=== PATIENT | male | born 1970 | race Caucasian/White ===

== ENCOUNTER → 2018-10-26 | Outpatient (CLI) | payer OTHER ==
[~2018-10-26] MED LIST: CYCL10TA2 PO; METH-37 PO
--- NOTE | 2018-10-26 23:15 | PAIN ---
DATE OF SERVICE: 10/26/2018 INITIAL CONSULTATION FOR PAIN CLINIC CHIEF COMPLAINT: Low back and left lower extremity pain. HISTORY OF PRESENT ILLNESS: This is a 48-year-old male who presents with history of pain in the low back and left lower extremity for about 1 year. The patient reports he did this while he was working out. 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 The patient reports it is more in the lateral anterior thigh, posterior thigh and lateral anterior medial leg on the left side only. No radiation on the right leg. The patient reports he has had some chiropractic treatment as well as doing some physical therapy and does exercises on his own constantly and did help with his chiropractic treatment, but only temporarily. The patient has tried Flexeril as well as methocarbamol. Flexeril does help mildly, but causes some sedation, but does decrease the pain mildly. The methocarbamol was not helpful. The patient reports it awakens him from sleep at night at least twice a night. It does not affect his bowel or bladder control, but does affect his ability to walk with the left leg fatiguing much more easily than the right, but without any loss of function. The patient reports the pain is constant, sharp, stabbing, throbbing, shooting, radiating to the left leg, has described as aching in the back as well. The patient had MRI scan of the lumbar spine, which shows multilevel degenerative disease most pronounced at L4-L5 with a mild disk degeneration and diffuse disk bulge, mild central canal stenosis, no lateral recess stenosis, mild bilateral neural foraminal stenosis. L5-S1 shows mild degeneration, moderate right and mild left facet arthropathy with a mild diffuse disk bulge, but no stenoses as well on that level. The patient rates his disability rate from 0-10, 10 being the worst, is a 6 with family and home responsibilities, 5 with social activity, occupation and sexual behavior, 10 with recreational activities, 2 with self-care and 0 with life support activities. PAST MEDICAL HISTORY: Significant for hearing loss, wears glasses, history of arthritis. PAST SURGICAL HISTORY: Includes right ankle surgery in 2016 and hernia repair in 1995. CURRENT MEDICATIONS: Include cyclobenzaprine and methocarbamol. ALLERGIES: THE PATIENT IS ALLERGIC TO IV CONTRAST DYE. No other medical allergies. FAMILY HISTORY: Significant for no major medical problems or conditions he is aware of. SOCIAL HISTORY: The patient drinks about 2 drinks twice a week, does not use any illegal, illicit or recreational drugs, does not smoke. He is , lives with his spouse and lives locally in [place], [place]. 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 REVIEW OF SYSTEMS: The patient's review of systems is positive for those items mentioned in history of present illness. All systems reviewed and otherwise negative. It is complete, full and well documented on the patient's chart. PHYSICAL EXAMINATION: VITAL SIGNS: The patient's blood pressure is 171/76, pulse 85, respirations 18, temperature is 97.6 degrees Fahrenheit. Height is 5 feet 10 inches, weight is 224 pounds. GENERAL: The patient is awake, alert, oriented, appropriate, very pleasant demeanor. HEENT: Head shows normocephalic, atraumatic. Extraocular movements are intact and symmetrical. Oral cavity: Mucous membranes moist and pink. Dentition is intact. NECK: Shows anterior throat supple without palpable lymphadenopathy noted. Swallow reflex symmetrical. CHEST: Shows normal with inspection. Breath sounds clear to auscultation bilaterally. HEART: Shows S1, S2 clear. No murmurs auscultated. ABDOMEN: Soft, nontender, nondistended. No palpable organomegaly is noted. No rebound or guarding demonstrated. BACK: Shows spine grossly in the midline. Normal appearing thoracic kyphosis and lumbar lordotic curvature. Lumbar paraspinous muscle shows symmetrical on inspection, with palpation shows some moderate tenderness, but only diffusely in the inferior aspect of the lumbar paraspinous musculature and equal bilaterally. No tenderness over the spinous processes, sacrum or sacroiliac regions. The patient has good rotational motion of lumbar spine, both laterally greater than 10 degrees right and left as well as extension greater than 10 degrees, forward flexion 45 degrees without pain reported. EXTREMITIES: The patient's lower extremities show deep tendon reflexes 2+ in the patellar and tendo calcaneus tendons. Motor exam is strong with 5/5 dorsiflexion, extension, quadriceps and hamstring flexion symmetrical. Peripheral pulses are 1+ posterior tibial. No peripheral edema is noted. Straight leg raise is noted to be mildly positive on the left at approximately 45 degrees. Right side is negative. Gaenslen's and Gordon's maneuvers are negative bilaterally as well. The patient is able to stand, stand on his toes without difficulty or loss of balance, walks with a normal appearing gait for short distance in the office, not using any assistive devices to ambulate. SKIN: Shows warm and dry, good turgor. No edema. No sores, rashes or bruising. IMPRESSION: 1. This is a 48-year-old male with approximately 1 year history of pain in low back, left lower extremity in a radicular fashion. 2. MRI scan of lumbar spine as noted. 3. Arthritis. PLAN: Options were discussed with the patient including conservative medical management, physical therapy and interventional techniques. He would like to proceed with interventional techniques. We discussed a lumbar epidural steroid injection using descriptions as well as anatomical models to describe the procedure. The patient would like to proceed with this. We will wait for preauthorization with his insurance provider. Once this is obtained, we will have the patient return and plan on lumbar epidural steroid injection at that time. In the meantime, the patient will continue doing stretching and strengthening exercises cautiously with activity and we will have him return as scheduled. ROXIE CHAVEZ MD DR: SHARIFA/xavi JOB#: [id number] / [id number]
== END | disposition home or self-care (01) ==
LOC: PNCL 08:00
PROVIDERS: ATTEND Anesthesiology
DX: M54.5 Low back pain (principal); M79.605 Pain in left leg; M19.90 Unspecified osteoarthritis, unspecified site
CPT/HCPCS: G0463

== ENCOUNTER → 2018-10-29 | Outpatient (CLI) | payer OTHER ==
[~2018-10-29] MED LIST changes: +IOHEXOL 180 MG/ML 10 ML VIAL. ONE; +MELO15TA23 PO; +METH40CP PO; +MULT1TAB52 PO; +OMEG1CAP6 PO; +PRAZ2CAP PO; +methylPREDNISolone ACETATE 40 MG/ML VIAL. ONE; +methylPREDNISolone ACETATE 80 MG/ML VIAL. ONE
--- NOTE | 2018-10-29 18:56 | PAIN ---
DATE OF SERVICE: 10/29/2018 DIAGNOSIS: Lumbar radiculopathy with lumbar degenerative disk disease. HISTORY OF PRESENT ILLNESS: The patient is a 48-year-old male who returns followup status post initial evaluation and preauthorization for lumbar epidural steroid injection. The patient has obtained this and would like to proceed today. The patient reports still some significant pain in the low back, left lower extremity as it was previously, posterior gluteus, posterior lateral thigh, lateral anterior thigh, anterior medial thigh, medial lower leg and posterior calf; described as 9 on a scale of 10 at its worst, 8 on average, 4 at its least and is 4 today. The patient reports it is aching, sharp, dull, shooting, stabbing, radiating, becoming more constant, worse with standing, walking, changing positions, better with sitting or lying down, but does awaken her from sleep about every 4-5 hours. The patient reports no new motor or sensory deficits, no new bowel or bladder incontinence or other complaints. PHYSICAL EXAMINATION: VITAL SIGNS: The patient's blood pressure is 141/90, pulse 90, respirations 18, temperature 98.1 degrees Fahrenheit, height is 5 feet 10 inches and weighs 225 pounds. GENERAL: The patient is awake, alert, oriented, appropriate, very pleasant demeanor. HEENT: Head is normocephalic, atraumatic. Extraocular movements are intact and symmetrical. Oral cavity: Mucous membranes moist and pink. Dentition is intact. NECK: Shows anterior throat supple without palpable lymphadenopathy noted. Swallow reflex symmetrical. CHEST: Shows normal on inspection. Breath sounds clear to auscultation bilaterally. HEART: Shows S1, S2 clear. No murmurs auscultated. ABDOMEN: Soft, nontender, nondistended. No palpable organomegaly is noted. No rebound or guarding demonstrated. BACK: Shows spine grossly in the midline. Normal-appearing thoracic kyphosis and lumbar lordotic curvature. Lumbar paraspinous muscle shows symmetrical on inspection, with palpation shows some moderate tenderness diffusely bilaterally, but only diffusely without radiation. EXTREMITIES: The patient's lower extremities show deep tendon reflexes 2+ in the patella, 1+ in the tendo calcaneus tendons are equal. Motor exam is strong 5/5 with dorsiflexion, extension, quadriceps and hamstring flexion symmetrical. Peripheral pulses are 1+ posterior tibial. No peripheral edema is noted bilaterally. Options were discussed with the patient. The patient's old chart was reviewed as was his current medication regimen updated. Current review of systems updated today as well. We will proceed with a lumbar epidural steroid injection today with fluoroscopic guidance. Risks were again discussed including, but not limited to bleeding, infection, possibility of epidural hematoma, subsequent neurological compromise, dural puncture, headaches, spinal cord and/or nerve damage, side effects of steroid medication and poor results regarding pain control. The patient understands and wished to proceed. The patient will return to clinic in approximately 2 weeks for followup. He was counseled as to return appointment, activity level and side effects to be aware of. DIAGNOSIS: Lumbar radiculopathy with lumbar degenerative disk disease. PROCEDURE: Lumbar epidural steroid injection, translaminar approach L4-L5 level using C-arm fluoroscopic guidance under sterile prep and drape using local anesthetic. MEDICATION INJECTED: A total of 120 mg Depo-Medrol plus 10 mL of preservative-free normal saline and 2 mL of Isovue for contrast. CONDITION AT DISCHARGE: Stable. The patient tolerated the procedure well, had no complications. ROXIE CHAVEZ MD DR: SHARIFA/xavi JOB#: [id number] / [id number]
== END | disposition home or self-care (01) ==
LOC: PNCL 11:30
PROVIDERS: ATTEND Anesthesiology
DX: M51.16 Intervertebral disc disorders with radiculopathy, lumbar region (principal); Z91.041 Radiographic dye allergy status
CPT/HCPCS: 62323; J1030; J1040; Q9965

== ENCOUNTER → 2018-11-11 | Outpatient (CLI) | payer OTHER ==
[~2018-11-11] MED LIST changes: -IOHEXOL 180 MG/ML 10 ML VIAL. ONE; -methylPREDNISolone ACETATE 40 MG/ML VIAL. ONE; -methylPREDNISolone ACETATE 80 MG/ML VIAL. ONE
--- NOTE | 2018-11-11 22:06 | PAIN ---
DATE OF SERVICE: 11/11/2018 PROGRESS NOTE FOR PAIN CLINIC DIAGNOSIS: Lumbar radiculopathy with lumbar degenerative disk disease. HISTORY OF PRESENT ILLNESS: The patient is a 48-year-old male who returns for followup status post lumbar epidural steroid injection x 1. The patient reports about 50% improvement in the low back and left lower extremity, increase his activity with greater ease and comfort. The patient is very pleased that he is feeling much better. The patient has been traveling with greater ease and comfort, also doing exercise with greater ease, still sleeping well at night, does not awaken her from sleep, increase his distance walking, doing work activities, household activities and traveling with greater ease and comfort. The patient reports his pain is still 8 on a scale of 10 at its worst, 6 on average, 3 at its least and is a 3 today. It is aching, sharp, dull, shooting, stabbing, sometimes constant in the low back and the left leg, mostly in the anterior thigh, lateral thigh and across the low back, mostly on the left side. The patient reports no new motor or sensory deficits and no new bowel or bladder incontinence or other complaints. PHYSICAL EXAMINATION: VITAL SIGNS: Today, the patient's blood pressure is 141/83, pulse 90 and respirations are 18. Temperature is 98.7 degrees Fahrenheit, height is 5 feet 10 inches and weigh is 225 pounds. GENERAL: The patient is awake, alert, oriented, appropriate and very pleasant demeanor. HEENT: Head shows normocephalic and atraumatic. Extraocular movements intact and symmetrical. Oral cavity: Mucous membranes moist and pink. Dentition is intact. NECK: Shows anterior throat supple without palpable lymphadenopathy noted. Swallow reflex is symmetrical. CHEST: Shows normal with inspection. Breath sounds are clear to auscultation bilaterally. HEART: Shows S1 and S2 clear. No murmurs auscultated. ABDOMEN: Soft, nontender and nondistended. No palpable organomegaly is noted. No rebound or guarding demonstrated. BACK: Shows spine grossly in the midline. Normal appearing thoracic kyphosis and lumbar lordotic curvature. Lumbar paraspinous musculature shows symmetrical on inspection and on palpation shows some moderate tenderness but only diffusely without radiation. EXTREMITIES: Lower extremities show deep tendon reflexes at 2+ in the patellar, 1+ tendo-calcaneus tendons. Motor exam is strong with 5/5 dorsiflexion, extension, quadriceps and hamstring flexion and symmetrical. Peripheral pulses are 1+ posterior tibial. No peripheral edema is noted bilaterally. Options were discussed with the patient. The patient's old chart was reviewed as well as his current medication regimen updated. Current review of systems updated today as well and we will preauthorize the patient for a second lumbar epidural steroid injection. He has done very well with the first injection, still some radicular pain in the L4-L5 distribution on the left side. The patient will continue with stretching and strengthening exercises as tolerated and will return to clinic in approximately 5 days. We will plan on second lumbar epidural steroid injection at that time. ROXIE CHAVEZ MD DR: SHARIFA/nts JOB#: [id number] / [id number]
== END | disposition home or self-care (01) ==
LOC: PNCL 10:59
PROVIDERS: ATTEND Anesthesiology
DX: M51.16 Intervertebral disc disorders with radiculopathy, lumbar region (principal); M79.605 Pain in left leg
CPT/HCPCS: G0463

== ENCOUNTER → 2018-11-16 | Outpatient (CLI) | payer OTHER ==
[~2018-11-16] MED LIST changes: +IOHEXOL 180 MG/ML 10 ML VIAL. ONE; +methylPREDNISolone ACETATE 40 MG/ML VIAL. ONE; +methylPREDNISolone ACETATE 80 MG/ML VIAL. ONE
--- NOTE | 2018-11-16 23:44 | PAIN ---
DATE OF SERVICE: 11/16/2018 PROGRESS NOTE FOR PAIN CLINIC: DIAGNOSIS: Lumbar radiculopathy with lumbar degenerative disk disease. HISTORY OF PRESENT ILLNESS: The patient is a 48-year-old male who returns for followup status post lumbar epidural injection x 1. He was waiting for preauthorization for second injection. The patient obtained that and would like to proceed today. The patient reports still pain in the low back, left lower extremity as was previously, mostly in the posterior gluteus, posterolateral thigh, lateral anterior thigh, anterior medial thigh, medial lower leg, rates it as 8 on a scale of 10 at its worst, 5 at its average and 3 at its least and is a 5 today. The patient reports it is aching, dull, sharp, shooting, stabbing, radiating, becoming more constant with time, but again currently helping from his last injection about 50% overall even after extended period of time. The patient reports it is better with sleeping. He has increased his activity very gradually with working out and exercising and doing better at night with much better sleep. The patient reports no new motor or sensory deficits, no new bowel or bladder incontinence or other complaints. PHYSICAL EXAMINATION: VITAL SIGNS: The patient's blood pressure 148/97, pulse 78, respirations 18, temperature 97.7 degrees Fahrenheit. Height is 5 feet 10 inches, weight is 225 pounds. GENERAL: The patient is awake, alert, oriented, appropriate, very pleasant demeanor. HEENT: Head is normocephalic, atraumatic. Extraocular movements are intact and symmetrical. Oral cavity: Mucous membranes moist and pink. Dentition is intact. NECK: Shows anterior throat supple without palpable lymphadenopathy noted. Swallow reflex symmetrical. CHEST: Shows normal with inspection. Breath sounds clear to auscultation bilaterally. HEART: Shows S1, S2 clear. No murmurs auscultated. ABDOMEN: Soft, nontender, nondistended. No palpable organomegaly is noted. No rebound or guarding demonstrated. BACK: Shows spine grossly in the midline. Normal appearing thoracic kyphosis and lumbar lordotic curvature. Lumbar paraspinous muscle shows symmetrical on inspection, on palpation shows a very mild tenderness only in the low lumbar distribution of paraspinous muscles bilaterally without radiation. The patient shows good range of motion both laterally as well as extension and flexion of lumbar spine with rotation without difficulty. EXTREMITIES: Lower extremities show deep tendon reflexes 2+ in the patellar, 1+ tendo-calcaneus tendons. Motor exam is strong with 5/5 dorsiflexion, extension, quadriceps and hamstring flexion symmetrical. Peripheral pulses are 1+ posterior tibial. No peripheral edema is noted. Options were discussed with the patient. The patient's old chart was reviewed as his current medication regimen updated. Current review of systems updated today as well. We will proceed with a second in the series of lumbar epidural steroid injection today with fluoroscopic guidance. Risks were again discussed including, but not limited to bleeding, infection, possibility of epidural hematoma, subsequent neurologic compromise, dural puncture, headaches, spinal cord and/or nerve damage, side effects of steroid medication and poor results regarding pain control. The patient understands and wished to proceed. The patient to return to clinic in approximately 2 weeks for followup. He was counseled on return appointment, activity level and side effects to be aware of. DIAGNOSIS: Lumbar radiculopathy with lumbar degenerative disk disease. PROCEDURE: Lumbar epidural steroid injection, translaminar approach L4-L5 level using C-arm fluoroscopic guidance under sterile prep and drape using local anesthetic. MEDICATION INJECTED: A total of 120 mg Depo-Medrol plus 10 mL of preservative-free normal saline and 2 mL of Isovue for contrast. CONDITION AT DISCHARGE: Stable. The patient tolerated procedure well, had no complications. ROXIE CHAVEZ MD DR: SHARIFA/xavi JOB#: [id number] / [id number]
== END | disposition home or self-care (01) ==
LOC: PNCL 07:56
PROVIDERS: ATTEND Anesthesiology
DX: M51.16 Intervertebral disc disorders with radiculopathy, lumbar region (principal); Z91.041 Radiographic dye allergy status
CPT/HCPCS: 62323; J1030; J1040; Q9965

== ENCOUNTER → 2018-11-30 | Outpatient (CLI) | payer OTHER ==
--- NOTE | 2018-11-30 08:59 | PAIN ---
DATE OF SERVICE: 11/30/2018 DIAGNOSES: Lumbar radiculopathy with lumbar degenerative disk disease. HISTORY OF PRESENT ILLNESS: The patient is a 48-year-old male, who returns for followup status post lumbar epidural steroid injections x 2. The patient reports about 80% improvement, currently still helping in the low back and left lower extremity. The patient reports he has been increasing his activity with greater ease and comfort, has been working out again cautiously but increasing his activity to a satisfying level where he has been becoming more active, sleeping well at night, has increased his distance walking, doing work activities, household activities, traveling with greater ease and comfort and especially with working out, he is much more comfortable and is very pleased with his progress. The patient reports no new motor or sensory deficits. He has increased energy and also reports a better attitude. The patient reports no new bowel or bladder incontinence, no new motor or sensory deficits. The patient reports his pain is a 5 on a scale of 10 at its worst, 3 on average, 0 at its least and is a 3 today. The patient reports it is aching, sharp, dull in the low back, shooting in the left lower extremity, mostly in the posterior gluteus, posterolateral thigh, lateral anterior thigh, anterior medial thigh, medial knee and lower leg with a radiating quality. PHYSICAL EXAMINATION: VITAL SIGNS: The patient's blood pressure is 145/93, pulse 96, respirations 16, temperature is 97.8 degrees Fahrenheit, weight is 224 pounds. GENERAL: The patient is awake, alert, oriented, appropriate, very pleasant demeanor. HEENT: Head shows normocephalic, atraumatic. Extraocular movements are intact and symmetrical. Oral cavity: Mucous membranes moist and pink. Dentition is intact. NECK: Shows anterior throat supple without palpable lymphadenopathy noted. Swallow reflex is symmetrical. CHEST: Shows normal on inspection. Breath sounds are clear to auscultation bilaterally. HEART: Shows S1, S2 clear. No murmurs auscultated. ABDOMEN: Soft, nontender, nondistended. No palpable organomegaly is noted. No rebound or guarding demonstrated. BACK: Shows spine grossly in the midline. Normal appearing thoracic kyphosis and lumbar lordotic curvature. Lumbar paraspinous muscle shows symmetrical on inspection. With palpation shows some moderate tenderness diffusely bilaterally, but only diffusely in the middle and lower distribution of paraspinous muscles, but are firm and symmetrical. No evidence of atrophy or hypertrophy. No trigger points. No radiation of pain. The patient has good rotational motion of the lumbar spine, both laterally as well as extension and flexion without difficulty. EXTREMITIES: Lower extremities show deep tendon reflexes 2+ in the patellar, 1+ tendo calcaneus tendons are equal. Motor exam is strong with 5/5 dorsiflexion, extension, quadriceps and hamstring flexion and symmetrical as well. Peripheral pulses are 1+ posterior tibia. No peripheral edema is noted. Options were discussed with the patient. The patient's old chart was reviewed as was his current medication regimen updated. Current review of systems is updated today as well and we will proceed with the third in the series of lumbar epidural steroid injection today with fluoroscopic guidance. Risks were again discussed including, but not limited to bleeding, infection, possibility of epidural hematoma, subsequent neurological compromise, dural puncture, headaches, spinal cord and/or nerve damage, side effects of steroid medication and poor results regarding pain control. The patient understands and wished to proceed. The patient will return to the clinic in approximately 2 weeks for followup, was counseled on return appointment, activity level and side effects to be aware of. DIAGNOSIS: Lumbar radiculopathy with lumbar degenerative disk disease. PROCEDURE: Lumbar epidural steroid injection, translaminar approach at L4-L5 level using C-arm fluoroscopic guidance under sterile prep and drape using local anesthetic. MEDICATION INJECTED: A total of 120 mg Depo-Medrol plus 10 mL of preservative-free normal saline and 2 mL of Isovue for contrast. CONDITION ON DISCHARGE: Stable. The patient tolerated the procedure well, had no complications. ROXIE CHAVEZ MD DR: SHARIFA/xavi JOB#: [id number] / [id number]
== END | disposition home or self-care (01) ==
LOC: PNCL 08:02
PROVIDERS: ATTEND Anesthesiology
DX: M51.16 Intervertebral disc disorders with radiculopathy, lumbar region (principal); Z91.041 Radiographic dye allergy status
CPT/HCPCS: 62323; J1030; J1040; Q9965

== ENCOUNTER → 2020-06-13 | Outpatient (CLI) | payer OTHER ==
[~2020-06-13] MED LIST changes: +MULT-445 PO; -MULT1TAB52 PO; +PRAZ5CAP PO
--- NOTE | 2020-06-13 08:28 | PDOC ---
Progress Note - Pain Clinic Date of Service: DOS: DATE: 06/13/20 TIME: 08:24 Diagnosis: Dx: Lumbar radiculopathy with lumbar degenerative disc disease History or Present Illness: HPI: 49-year-old male returns follow-up status post lumbar epidural steroid injections x3 most recently seen November 2018. Patient which did very well with near 80% improvement for extended period time many months patient reports that time is gone by and the pain is returning down the low back and left lower extremity posterior gluteus posterior lateral thigh lateral anterior thigh anteromedial thigh medial lower leg with walking standing most noticeably patient reports that is not unbearable but is becoming worse with time and over the past month or 2 is becoming much worse patient reports it is generally not awaken her from sleep at night is better with sitting or laying down worse with walking standing changing positions patient rates his pain is an 8 on scale 10 is worse over the past week for an average/is a 4 today patient scribes aching and dull tight shooting in the left lower extremity as well as radiating the left leg and aching dull in the low back. Patient reports initially was doing much better with doing work activities household activities walking greater distances sleeping better. Patient reports no new motor or sensory deficits no new bowel bladder incontinence or other complaints. Physical Exam: VS: Pressure is 130/70 pulse 73 respirations 18 temperature 90.1 F height is 5 feet 10 inches weight is 2 2 9 pounds PE: PHYSICAL EXAMINATION: GENERAL: The patient is awake, alert, oriented, appropriate, very pleasant demeanor HEENT: Shows normocephalic, atraumatic. Extraocular movements are intact and symmetrical. Oral cavity: Mucous membranes moist and pink. Dentition is intact. NECK: Shows anterior throat supple without palpable lymphadenopathy noted. Sw allow reflex symmetrical. CHEST: Shows normal on inspection. Breath sounds are clear bilaterally, no rales rhonchi or wheezes auscultated. HEART: Shows S1, S2 clear. No murmurs auscultated. ABDOMEN: Soft, nontender, nondistended. No palpable organomegaly is noted. No rebound or guarding demonstrated. BACK: Shows spine grossly in the midline. Normal-appearing cervical lordotic curvature. There is slightly increased thoracic kyphosis, some minor flattening of the lumbar lordotic curvature. Lumbar paraspinous muscles show symmetrical on inspection, on palpation shows some moderate tenderness diffusely throughout the upper, middle and lower distribution of the paraspinous muscles bilaterally without specific trigger points, without radiation of pain. The patient has good rotational motion of the lumbar spine, both laterally as well as extension and flexion without significant difficulty. No tenderness over the spinous processes, sacrum or sacroiliac regions. EXTREMITIES: Lower extremities show deep tendon reflexes 2+ in the patellar and tendo calcaneus tendons. Motor exam is 5 on a scale of 5 with right dorsiflexion, extension, quadriceps and hamstring flexion and 5/5 on the left. Peripheral pulses are 1+ posterior tibial. No peripheral edema is noted bilaterally. Lower extremities are warm and dry to touch, equal in color and appearance. Straight leg raise noted to be negative bilaterally. Gaenslen's and Gordon's maneuvers are [] as well. The patient is able to stand, stand on his toes walks without any significant favoring the right or left lower extremity no assistive device is necessary. SKIN: Shows warm and dry, good turgor. No edema. No sores, rashes or bruising throughout. Procedure: Procedure: Options discussed with the patient. Patient will chart reviewed his current medication regimen updated current review of systems updated today as well. We will proceed with a lumbar epidural steroid injection today with fluoroscopic guidance. Risks were discussed including but not limited to: Bleeding, infection, possibility of epidural hematoma and subsequent neurological compromise, dural puncture, headaches, spinal cord and/or nerve damage, side effects of steroid medication, and poor results regarding pain control. Patient understands wished to proceed. Patient return to clinic in approximate 2 weeks for follow-up was counseled as return appointment activity level and side effects to be aware of. Medication Injected: Med Injected: Procedure is lumbar epidural steroid injection under local anesthetic using sterile prep and drape at the L4-5 level using C-arm fluoroscopic guidance in both AP and lateral views medications injected is 120 mg Depo-Medrol + 10 mL preservative-free normal saline and 2 mL contrast- condition at discharge is stable patient tolerated procedure well had no complications. Condition at Discharge: Condition at Discharge: Condition at discharge is stable patient tolerated procedure well had no complications. ROXIE CHAVEZ MD Jun 13, 2020 08:27
== END | disposition home or self-care (01) ==
LOC: PNCL 07:39
PROVIDERS: ATTEND Anesthesiology
DX: M51.16 Intervertebral disc disorders with radiculopathy, lumbar region (principal); Z88.8 Allergy status to other drugs, medicaments and biological substances; Z79.899 Other long term (current) drug therapy
CPT/HCPCS: 62323; J1030; J1040; Q9965